=== PATIENT | female | born 2000 | race Two or more races ===

== ENCOUNTER 2020-06-16 05:50 | Inpatient (IN) | payer MEDICAID ==
[~2020-06-16] VITALS: Ht 157.5 cm; Wt 67.0 kg
[2020-06-16] MEDS ORDERED: MISOPROSTOL 200 MCG TABLET ONE (06:06)
[2020-06-16] MEDS ORDERED: LIDOCAINE 1%, 20ML ONE (06:06)
[2020-06-16] MEDS ORDERED: CALCIUM CARBONATE 500 MG TAB.CHEW ONE (06:56)
[2020-06-16] MEDS ORDERED: FENTANYL PF 100 MCG/2ML IV PRN (07:00)
[2020-06-16] MEDS ORDERED: CALCIUM CARBONATE 500 MG TAB.CHEW PO PRN ×2 (07:00→23:00)
[2020-06-16] MEDS ORDERED: OXYTOCIN 30U/ 0.9% NaCL 500ML 500 ML IV PRN (07:00)
[2020-06-16] MEDS ORDERED: TERBUTALINE 1 MG/ML, 1ML IVPush PRN (07:00)
[2020-06-16] MEDS ORDERED: OXYTOCIN 30U/ 0.9% NaCL 500ML 500 ML IV ONE (07:00)
[2020-06-16] MEDS ORDERED: ONDANSETRON 2MG/ML, 2ML IVPush PRN ×2 (07:00→16:00)
[2020-06-16] MEDS ORDERED: PLEASE ENTER ALLERGIES MC SCH (07:00)
[2020-06-16] MEDS ORDERED: FENTANYL PF 100 MCG/2ML IVPush PRN (07:00)
[2020-06-16] MEDS ORDERED: MISOPROSTOL 25 MCG TABLET PO PRN ×3 (07:00→08:00)
[2020-06-16] MEDS ORDERED: TERBUTALINE 1 MG/ML, 1ML SQ PRN (07:00)
[2020-06-16] MEDS ORDERED: NEWBORN KIT ONE (07:05)
[2020-06-16] MEDS ORDERED: OXYTOCIN 30U/ 0.9% NaCL 500ML 500 ML ONE (07:05)
[2020-06-16 07:09] LABS: BASOPHILS % (AUTO) 1 % (0-1); EOSINOPHILS % (AUTO) 1 % (1-7); LYMPHOCYTES % (AUTO) 21 % (22-44); MEAN CORPUSCULAR HEMOGLOBIN 29.6 pg (27.0-34.8); MEAN CORPUSCULAR HGB CONC 33.4 g/dL (32.4-35.8); MEAN PLATELET VOLUME 9.9 fL (7.4-10.4); MONOCYTES % (AUTO) 8 % (2-9); NEUTROPHILS % (AUTO) 70 % (42-75); PLATELET COUNT 169 x10^3/uL (130-400); RED BLOOD COUNT 3.55 x10^6/uL (3.82-5.3); RED CELL DISTRIBUTION WIDTH 15.5 % (9.6-15.2)
[2020-06-16 07:10] LABS: MD NO
[2020-06-16] MEDS: LACTATED RINGERS 1,000 ML IV SCH ×3 (11:50→23:00)
[2020-06-16] MEDS: D5%-LACTATED RINGERS 1,000 ML IV SCH ×3 (15:00→23:00)
[2020-06-16] MEDS ORDERED: BUPIVACAINE 0.25% ONE (15:56)
[2020-06-16] MEDS ORDERED: FENTANYL/BUPIV./NS/PF 250 ML EPIDCONT ONE (15:56)
[2020-06-16] MEDS ORDERED: LACTATED RINGERS 1,000 ML IVBOLUS PRN (16:00)
[2020-06-16] MEDS ORDERED: EPHEDRINE 50 MG/ML, 1ML IVPush PRN (16:00)
[2020-06-16] MEDS ORDERED: LACTATED RINGERS 1,000 ML IV SCH (16:00)
[2020-06-16] MEDS ORDERED: FENTANYL/BUPIV./NS/PF 250 ML EPIDCONT SCH (16:00)
[2020-06-16] MEDS ORDERED: DIPHENHYDRAMINE 50 MG/ML, 1ML IVPush PRN (16:00)
[2020-06-16] MEDS ORDERED: NALOXONE 0.4 MG/ML, 1ML IVPush PRN (16:00)
[2020-06-16] MEDS ORDERED: MISOPROSTOL 200 MCG TABLET PR PRN (23:00)
[2020-06-16] MEDS ORDERED: METHYLERGONOVINE 0.2 MG/ML IM PRN (23:00)
[2020-06-16] MEDS ORDERED: SIMETHICONE 80 MG CHEW TAB PO PRN (23:00)
[2020-06-16] MEDS ORDERED: RHOGAM FROM BLOOD BANK 1 NOTE EA IM/IV ONE (23:00)
[2020-06-16] MEDS ORDERED: MEASLES,MUMPS&RUBELLA VACC/PF 0.5 ML SQ-VACC PRN (23:00)
[2020-06-16] MEDS ORDERED: TRANEXAMIC ACID 100 MG/ML, 10ML IV ONE (23:00)
[2020-06-16] MEDS ORDERED: MAGNESIUM HYDROXIDE 8%, 30ML UDC PO PRN (23:00)
[2020-06-16] MEDS ORDERED: ONDANSETRON 2MG/ML, 2ML IV PRN (23:00)
[2020-06-16] MEDS ORDERED: ACETAMINOPHEN 325 MG TABLET PO PRN (23:00)
[2020-06-16] MEDS ORDERED: OXYcodone/APAP 5/325MG TABLET PO PRN (23:00)
[2020-06-16] MEDS: OXYTOCIN 30U/ 0.9% NaCL 500ML 500 ML IV SCH ×2 (23:00)
[2020-06-16] MEDS ORDERED: DIPH,PERTUSS(ACELL),TET VAC/PF NC IM-VACC PRN (23:00)
[2020-06-16] MEDS ORDERED: OXYTOCIN 10 UNITS/ML, 1ML IM PRN (23:00)
[2020-06-16] MEDS ORDERED: BISACODYL 10 MG SUPP PR PRN (23:00)
[2020-06-17] MEDS: OXYTOCIN 30U/ 0.9% NaCL 500ML 500 ML IV SCH ×13 (00:26→16:12)
[2020-06-17 01:15] VITALS: BP 124/84
[2020-06-17] MEDS: IBUPROFEN 600 MG TABLET PO PRN ×3 (01:17→14:37)
[2020-06-17 04:29] VITALS: BP 121/81
[2020-06-17 06:46] LABS: BASOPHILS % (AUTO) 0 % (0-1); EOSINOPHILS % (AUTO) 1 % (1-7); LYMPHOCYTES % (AUTO) 15 % (22-44); MEAN CORPUSCULAR HEMOGLOBIN 29.4 pg (27.0-34.8); MEAN CORPUSCULAR HGB CONC 33.1 g/dL (32.4-35.8); MEAN PLATELET VOLUME 10.4 fL (7.4-10.4); MONOCYTES % (AUTO) 6 % (2-9); NEUTROPHILS % (AUTO) 78 % (42-75); PLATELET COUNT 159 x10^3/uL (130-400); RED BLOOD COUNT 3.67 x10^6/uL (3.82-5.3); RED CELL DISTRIBUTION WIDTH 15.6 % (9.6-15.2)
[2020-06-17 06:48] LABS: MD NO
[2020-06-17 08:21] VITALS: BP 108/72
[2020-06-17] MEDS: PRENATAL VIT/IRON/FA 1 EACH TABLET PO SCH (09:00)
[2020-06-17] MEDS: OXYcodone/APAP 5/325MG TABLET PO PRN ×3 (11:21→19:52)
[2020-06-17 12:00] VITALS: BP 110/78
[2020-06-17 16:00] VITALS: BP 108/74
[2020-06-17 19:30] VITALS: BP 121/78
[2020-06-17] MEDS: DOCUSATE 100 MG CAPSULE PO PRN (19:52)
[2020-06-18 07:22] VITALS: BP 109/67
[2020-06-18] MEDS: DOCUSATE 100 MG CAPSULE PO PRN (07:39)
[2020-06-18] MEDS: PRENATAL VIT/IRON/FA 1 EACH TABLET PO SCH (07:39)
[2020-06-18] MEDS: IBUPROFEN 600 MG TABLET PO PRN (07:39)
== END 2020-06-18 13:15 | disposition home or self-care (01) | DRG 807 ==
LOC: LDIP 05:50 → 2NW 06-17 01:00
PROVIDERS: ADMIT Obstetrics & Gynecology; ATTEND Obstetrics & Gynecology
PROC: 10E0XZZ Delivery of Products of Conception, External Approach (ICD-10-PCS; principal; 2020-06-16)
PROC: 3E0R3BZ Introduction of Anesthetic Agent into Spinal Canal, Percutaneous Approach (ICD-10-PCS; 2020-06-16)
PROC: 00HU33Z Insertion of Infusion Device into Spinal Canal, Percutaneous Approach (ICD-10-PCS; 2020-06-16)
DX: O80 Encounter for full-term uncomplicated delivery (principal); Z37.0 Single live birth; Z20.822 Contact with and (suspected) exposure to COVID-19; Z3A.40 40 weeks gestation of pregnancy
CPT/HCPCS: 36415; J7121; 85025; 86592; 86850; 86900; 87635; G0378; J2590; J7120